=== PATIENT | male | born 1940 | race Caucasian/White ===

== ENCOUNTER → 2020-06-25 | Outpatient (CLI) | payer MEDICARE, OTHER ==
--- NOTE | 2020-06-25 12:28 | RAD ---
Study: Frontal and Lateral Radiographs of the Chest. Indication: COPD Comparison: None Impression: Mild cardiomegaly. Dorsal column stimulator device present. Emphysema suspected. Patchy consolidative changes bilateral lung bases, right greater than left. COVID-19 could give this appearance. No pleural effusion or pneumothorax. Degenerative changes of the spine noted. Electronically signed by: Leonard Holloway MD 06/25/2020 12:26 PM CDT
== END ==
LOC: RAD 06-23 11:19
PROVIDERS: ATTEND Internal Medicine Pulmonary Disease
DX: J44.9 Chronic obstructive pulmonary disease, unspecified (principal); R91.8 Other nonspecific abnormal finding of lung field; I51.7 Cardiomegaly; Z96.82 Presence of neurostimulator; M47.9 Spondylosis, unspecified

== ENCOUNTER 2020-09-06 10:30 | Observation (INO) | payer MEDICARE, OTHER ==
[2020-09-06] MEDS ORDERED: ASPIRIN TABLET 325 MG TAB PO ONE (11:11)
--- NOTE | 2020-09-06 11:13 | ED.PDOC ---
History of Present Illness - General Exam Limitations: no limitations Additional Information: Patient did take Rx Brilinta today - History of Present Illness Initial Comments: Adm [facility] in [place] week beore last to ICU for A-Fib and apparent pe ricardial effusion. S/P rotarblade angioplasty [address] 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 Had facial droop and siezure the same day, evaluated with brain imag w/o acut fndings. Timing/Duration: 4-6 hours Severity: severe Improving Factors: nothing Worsening Factors: other - Exertion Associated Symptoms: diaphoresis, shortness of breath <Danny Means - Last Filed: 09/06/20 18:47> <Glenn España - Last Filed: 09/06/20 20:11> - General Chief Complaint: Cardiovascular Problem Stated Complaint: Dizziness, SOB, Feels like heart is racing Time Seen by Provider: 09/06/20 11:09 - History of Present Illness Allergies/Adverse Reactions: Allergies NO KNOWN ALLERGY Allergy (Verified 09/06/20 12:11) Review of Systems - Review of Systems Constitutional: States: diaphoresis, weakness EENTM: States: no symptoms reported Respiratory: States: short of breath Cardiology: States: palpitations - Rapid, not irregular. Denies: chest pain Gastrointestinal/Abdominal: States: no symptoms reported Genitourinary: States: no symptoms reported Musculoskeletal: States: no symptoms reported Skin: States: no symptoms reported Neurological: States: weakness - General, no focal symptoms Endocrine: States: no symptoms reported <Danny Means - Last Filed: 09/06/20 18:47> Past Medical History (General) - Patient Medical History Hx Cardiac Disorders: Yes - Aib, CAD, pericardial effusion <Danny Means - Last Filed: 09/06/20 18:47> Family Medical History - Family History Mother Family History: Unknown Living Status: Unknown <Danny Means - Last Filed: 09/06/20 18:47> Physical Exam - Physical Exam General Appearance: Alert, Ill Appearing Eye Exam: bilateral normal Neck: non-tender - No JVD noted Respiratory: crackles - Both bases Cardiovascular/Chest: regular rate, rhythm Peripheral Pulses: femoral,right: 1+, femoral,left: 1+, popliteal,right: 2+, dorsalis pedis,right: 2+, dorsalis pedis,left: 0, posterior tibialis,right: 1+, posterior tibialis,left: 0 - + Doppler Gastrointestinal/Abdominal: normal bowel sounds, non tender, soft Back Exam: normal inspection 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 Comments: Both feet warm & pink Front/Back of Body, Lg (Color): 1 - Intense ecchymosis <Danny Means - Last Filed: 09/06/20 18:47> Progress - Progress Progress: 09/06/20 12:21 Called [facility] to request medical bed. Labs for COVID/Pneumonia drawn. echo pending, IV antibiotics ordered. 09/06/20 12:36 09/06/20 11:12 EKG Assessment ONCE 09/06/20 11:15 EKG STAT 09/06/20 11:29 C-REACTIVE PROTEIN Stat FERRITIN Stat LD-L/LDH Stat FIBRINOGEN Stat 09/06/20 11:47 Echocardiography complete w Stat 09/06/20 12:11 Oxygen Delivery Assessment: QSHIFT 09/06/20 12:14 BLOOD CULTURE Stat 09/06/20 12:29 ED Intent to Admit Routine 09/07/20 09:00 Oxygen Daily Laboratory Results - last 24 hr 09/06/20 11:29 WBC 14.5 H RBC 3.36 L Hgb 10.9 L Hct 32.7 L MCV 97.4 H MCH 32.3 H MCHC 33.2 RDW 14.9 H Plt Count 213 MPV 8.2 Absolute Neuts (auto) 12.20 H Absolute Lymphs (auto) 1.20 Absolute Monos (auto) 0.90 H Absolute Eos (auto) 0.20 Absolute Basos (auto) 0.10 Neutrophils % 84.0 H Lymphocytes % 8.1 L Monocytes % 5.9 Eosinophils % 1.5 Basophils % 0.5 PT 10.5 INR 1.06 PTT (SP) 26.8 Sodium 138 Potassium 4.0 Chloride 101 Carbon Dioxide 27 Anion Gap 14.0 BUN 14 Creatinine 1.01 BUN/Creatinine Ratio 13.9 Random Glucose 133 H Serum Osmolality 278.1 Calcium 8.4 Magnesium 1.8 Creatine Kinase 415 H* CK-MB (CK-2) 1.8 CK-MB (CK-2) % Not Reportable Troponin I 0.23 H* B-Natriuretic Peptide 362.0 H* Vital Signs - 24 hr 09/06/20 10:59 Temperature 97.3 F L Pulse Rate [ 80 Right Radial] Respiratory 20 Rate Blood Pressure 132/56 [Left Arm] O2 Sat by Pulse 96 Oximetry 09/06/20 12:54 CTA neg fro PE, + multiple infiltrates c/w pneumonia. D/W patient, is OK with outpatient disposition. To D/C on steroids and azithromycin, F/U PCP 09/06/20 12:56 PRIOR ENTRY WRITTEN IN ERROR, WRONG PATIENT. DISREGARD ENTRY ABOVE. 09/06/20 13:30 lab support tech reports no pericardial effusion seen. Report pending. 09/06/20 13:41 Discussed all findings with Dr. Ryan Crenshaw, hositalist on-call for [facility]: Accepted for admission intermediate ICU. Bed assignment pending discharges of patients from unit. 09/06/20 15:15 Repreat troponin 0.20. Awaiting bed assignment. Patient comfortable with stable VS. 09/06/20 16:59 Still awaiting bed assignment. Nightly meds written. Apixiban pm dose held due to Lovenox given. Pm dose Brilinta not written, unavailable this facility. Patient comfortable, stable,with good vital signs. 09/06/20 18:47 Still awaitng bed assignment. Care transferred to Dr. Glenn España. Plan: re- check third set of cardiac enzymes, is declining elev of Troponin likely due to procedure and not NSTEMI. Admit here for pneumonia. - EKG/XRAY/CT EKG: Sinus, nonspecific ST T wave Chg Comments: 75/min, No S-t elev or depression, NSR <Danny Means - Last Filed: 09/06/20 18:47> - Progress Progress: 09/06/20 20:08 The patient is being admitted to the hospital for a right middle lobe pneumonia that is likely hospital-acquired from his previous hospital stay. He has been started on vancomycin, Rocephin and azithromycin. He does not appear to be grossly fluid overloaded at this point. He does have a elevated BNP, however we do not have a previous to compare to. This will need to be followed. The patient does have a mildly elevated troponin likely due to the recent cardiac catheterization. Troponin has remained steady on 3 checks. No evidence of chest pain and no evidence of any acute pathology on EKG. Blood and sputum cul tures are being done. The patient does have significantly less dyspnea with oxygen in place even though his oxygen levels bottomed out at only around 89% on room air. The patient is a brittle COPD and CHF patient. He is currently in sinus rhythm. Delay in admission due to need to confirm that the patient is not having an acute non-ST elevation KS currently. Admit for continued care. 09/06/20 20:11 - Results/Orders Results/Orders: Third troponin shows no significant elevation, hovering around 0.2. Chest x-ray shows a right middle lobe pneumonia. <Glenn España - Last Filed: 09/06/20 20:11> Departure <Danny Means - Last Filed: 09/06/20 18:47> <Glenn España - Last Filed: 09/06/20 20:11> - Departure Clinical Impression: Hospital-acquired pneumonia Dyspnea Qualifiers: Dyspnea type: shortness of breath Qualified Code(s): R06.02 - Shortness of breath Disposition: Admit Patient Condition: Good Instructions: DI for Chest Pain Referrals: Luis ESPAÑA REF [Primary Care Provider] - 1-2 Weeks Decision To Admit - Decistion To Admit Decision to Admit Reason: Medical Nature - Pneumonia RLL, RMl. Elevated troponin, r/o NSTEMI Decision to Admit Date: 09/06/20 Decision to Admit Time: 12:18 <Danny Means - Last Filed: 09/06/20 18:47> - Decistion To Admit Decision to Admit Date: 09/06/20 Decision to Admit Time: 20:11 <Glenn España - Last Filed: 09/06/20 20:11>
--- NOTE | 2020-09-06 11:45 | RAD ---
EXAM DESCRIPTION: Chest,1 View CLINICAL HISTORY: 79 years Male, SOB, s/p recdnt stent placement COMPARISON: Previous study June 25, 2020 TECHNIQUE: AP portable chest. FINDINGS: Heart size is large with centrally prominent pulmonary vascularity. TENS unit electrode leads in the mid T-spine. Disc spacers in the lower C-spine. 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 Extensive infiltrate in the mid and lower right lung consistent with pneumonia. Question milder peripheral infiltrative changes in the left upper and midlung zones. Right hemidiaphragm is elevated. No pulmonary mass or worrisome nodule. No pneumothorax. Question small right pleural effusion. Bones are unremarkable. IMPRESSION: Right lung infiltrate consistent with pneumonia. Electronically signed by: Vic Casey MD 09/06/2020 11:43 AM MULE DEVELOPER
[2020-09-06] MEDS ORDERED: cefTRIAXone SODIUM 1 GM in SODIUM CHL 0.9% 50ML MIN-BAG+ 50 ML IVPB ONE (12:07)
[2020-09-06] MEDS ORDERED: DEXAMETHASONE INJ 10 MG/ML VIAL IV ONE (12:08)
[2020-09-06] MEDS ORDERED: REMDESIVIR 200 MG in SODIUM CHLORIDE 0.9% 250ML 250 ML IVPB ONE (12:08)
[2020-09-06] MEDS ORDERED: ENOXAPARIN SODIUM 80 MG/0.8 ML SYG SUBCU ONE (16:37)
[2020-09-06] MEDS ORDERED: ALBUTEROL INHALER 64 PUFF/8GM INH PRN (16:43)
[2020-09-06] MEDS ORDERED: HYDROcodone 10MG/APAP 325MG 1 EA TAB PO PRN (16:55)
[2020-09-06] MEDS ORDERED: FINASTERIDE 5 MG TAB PO SCH (18:00)
[2020-09-06] MEDS ORDERED: AMIODARONE HCL 200 MG TAB PO ONE (18:00)
[2020-09-06] MEDS ORDERED: VANCOMYCIN HCL INJ 1,000 MG, VANCOMYCIN HCL INJ 500 MG in SODIUM CHLORIDE 0.9% 250ML 25... IVPB ONE (19:52)
[2020-09-06] MEDS ORDERED: SODIUM CHLORIDE 0.9% (FLUSH) 10 ML SYG IV PRN (20:21)
[2020-09-06] MEDS ORDERED: VANCOMYCIN PER PHARMACY IVPB SCH (20:30)
[2020-09-06] MEDS: traZODone HCL 100 MG TAB PO SCH (20:36)
[2020-09-06] MEDS ORDERED: MELATONIN 3 MG TAB PO SCH (21:00)
[2020-09-06] MEDS ORDERED: NON-FORMULARY MEDICATION 1 EA MIS (Melatonin [Melatonin] 5 MG) PO SCH (21:00)
[2020-09-06] MEDS ORDERED: ATORVASTATIN 20 MG TAB PO SCH (21:00)
--- NOTE | 2020-09-06 21:09 | HP ---
SUPERVISING PHYSICIAN: Arden España MD CHIEF COMPLAINT: Shortness of breath and fatigue. HISTORY OF PRESENT ILLNESS: This is a 79-year-old male patient who came to the Emergency Room last night basically feeling pretty weak with a cough and shortness of breath. He was evaluated in the ER and was noted to have significant right sided pneumonia. Other labs that were done showed elevated white count of 14.5, hemoglobin 10.9, platelet count 213. Chemistries showed he had elevated troponin. There were 3 sets of troponins that all stayed in the range of about 0.20. They never really elevated. Initially, he was going to be transferred to [facility], however, given the fact that he did not have acute EKG changes, no significant chest pain and no subsequent increase in troponin, he remained here. Additionally, they did not have beds at that time. He was referred for admission for treatment of the pneumonia. He was COVID negative. I admitted the patient and placed him on antibiotics for healthcare associated pneumonia. Apparently he was admitted for about a week in [place] in the ICU there. I was told by his son and the patient it was for atrial fibrillation, however, I am not really sure what other complications he may have had that put him in the ICU. Additionally, he was transferred to [facility] where he ended up having a stent placed. I do not have records from that facility and he does not remember what vessel it was. He does have a sore on the right side of his mouth and I asked him where that was from. He said he had it after the procedure. His son verifies that he was on the ventilator for the procedure, but does not really know what happened that caused him to have to be on the ventilator. I have attempted to contact the patient's dermatology specialist without success as of yet. Once again, we have tried to get records from [facility] as well as [place] without success either. The patient did have a drop in his blood pressure overnight into the 60s which responded to a 500 cc bolus. He also had a blood pressure in the 80s after that bolus and was given an additional 500 cc bolus which he responded to as well with no problems. He had an echocardiogram which showed mild left ventricular hypertrophy and an ejection fraction of 65-70%. The patient complained of some mild hemoptysis this morning and, in fact, I did look at his sputum and he does have some blood in his sputum, but it is not bright red profuse blood, more of a dark blood-tinged sputum. At this point, I have stopped his Eliquis and stopped the digoxin as well due to the fact that his digoxin level is 2.2. PAST MEDICAL HISTORY: 1. Hypertension. 2. Hyperlipidemia. 3. Hypothyroidism. 4. Fatty liver disease. 5. Coronary artery disease. 6. Atrial fibrillation. PAST SURGICAL HISTORY: 1. Bilateral carotid endarterectomies. 2. Stimulator surgery for back surgeries. 3. Tonsillectomy. 4. Left wrist surgery. MEDICATIONS: Please see medication reconciliation list once verified in the computer. ALLERGIES: NO KNOWN DRUG ALLERGIES. FAMILY HISTORY: The son and the patient deny any significant family history. SOCIAL HISTORY: The patient smoked for 30 years, but quit 15 years ago. His son states that he drinks vodka daily, but he has not drank since his hospitalization and it has been a couple of weeks. No illicit drugs. REVIEW OF SYSTEMS: CONSTITUTIONAL: No fever or chills. Positive for weakness. HEENT: No headaches, vision changes, ear pain, nasal congestion or throat pain. RESPIRATORY: Positive for cough, hemoptysis and shortness of breath. No pleuritic chest pain. CARDIOVASCULAR: No chest pain, palpitations or peripheral edema. GASTROINTESTINAL: No nausea, vomiting, diarrhea, constipation or abdominal pain. GENITOURINARY: No dysuria, frequency or flank pain. ENDOCRINE: No polydipsia, polyuria or polyphagia. No heat or cold intolerance. MUSCULOSKELETAL: No joint pain, joint swelling or muscle cramps. NEUROLOGIC: No syncope, paresthesias or seizures. HEMATOLOGIC: Positive for easy bruising, but no transfusion reaction. PHYSICAL EXAMINATION: VITAL SIGNS: Blood pressure 102/52, heart rate 63, respiratory rate 16, temperature 97.6, oxygen saturation 96% on 2 liters via nasal cannula. GENERAL: Mr. Saravia is a 79-year-old male patient who is ill in appearance, but in no active distress. NEUROLOGIC: The patient is alert. LUNGS: Crackles bilaterally. CARDIOVASCULAR: Irregular rate and rhythm. Normal S1, S2. ABDOMEN: Soft. Positive bowel sounds. EXTREMITIES: Lower extremities with no edema. Pulses 2+. Capillary refill is less than 2 seconds. LABORATORY: Labs and films are as discussed in history of present illness. IMPRESSION: 1. Right sided pneumonia which appears to be healthcare associated. 2. Coronary artery disease with recent stent. 3. Hemoptysis. 4. Atrial fibrillation. 5. Hypertension with current marginal blood pressure. 6. Hypothyroidism. 7. Anemia, not in transfusion range. PLAN: The patient will be admitted for healthcare associated pneumonia. I stopped the Eliquis due to the hemoptysis and have tried to touch base with the dermatology specialist and hope to do so. His dermatology specialist is Dr. Lowell Masters at [facility], phone number [phone]. I am also stopping the digoxin due to the elevated dig level. We will continue the Brilinta given the recent stents. I will reduce his amiodarone to 200 mg b.i.d. until I can speak with the dermatology specialist. I will start him on a low dose of Lasix 20 mg IV b.i.d. We will still attempt to get records from outlying facilities to piece together exactly what happened with the patient. We will recheck labs and chest x-ray tomorrow. #[id number] [facility]
[2020-09-06] MEDS ORDERED: SODIUM CHL 0.9% 100ML MINI-BAG 100 ML IVPB ONE (22:38)
[2020-09-06] MEDS ORDERED: PIPERACILLIN/TAZOBACTAM 3.375 GM VIAL IVPB ONE (22:38)
[2020-09-06] MEDS: IV SET AND CAP CHANGE INJ INJ SCH (22:44)
[2020-09-06] MEDS: AMIODARONE HCL 200 MG TAB PO SCH (22:44)
[2020-09-06] MEDS: HYDROcodone 10MG/APAP 325MG 1 EA TAB PO SCH (22:45)
[2020-09-06] MEDS: APIXABAN 5 MG TAB PO SCH (22:45)
[2020-09-06] MEDS: PIPERACILLIN/TAZOBACTAM 3.375 GM in SODIUM CHLORIDE 0.9% 100ML 100 ML IVPB SCH (22:47)
[2020-09-06] MEDS: TICAGRELOR 90 MG PO SCH (22:47)
[2020-09-07] MEDS ORDERED: SODIUM CHLORIDE 0.9% 500ML 500 ML IVS ONE ×2 (00:23→03:23)
[2020-09-07] MEDS ORDERED: PIPERACILLIN/TAZOBACTAM 3.375 GM VIAL IVPB ONE (03:39)
[2020-09-07] MEDS ORDERED: SODIUM CHL 0.9% 100ML MINI-BAG 100 ML IVPB ONE (03:39)
[2020-09-07] MEDS: HYDROcodone 10MG/APAP 325MG 1 EA TAB PO SCH ×3 (04:06→16:44)
[2020-09-07] MEDS: PIPERACILLIN/TAZOBACTAM 3.375 GM in SODIUM CHLORIDE 0.9% 100ML 100 ML IVPB SCH ×3 (05:52→22:03)
[2020-09-07] MEDS: LEVOTHYROXINE SODIUM 0.1 MG TAB PO SCH (06:02)
[2020-09-07] MEDS ORDERED: PANTOPRAZOLE SODIUM TAB 40 MG PO SCH ×2 (06:30→09:00)
--- NOTE | 2020-09-07 07:15 | RAD ---
PROCEDURE:XR CHEST 1 VIEW HISTORY:Pneumonia COMPARISON: September 06, 2020 FINDINGS: The heart is stable in appearance.. The infiltrate seen within the right lung is slightly more pronounced than on the prior exam. The remainder of the lung parenchyma appears unremarkable with no effusion or pneumothorax There are no acute bony or soft tissue abnormalities. IMPRESSION: Slight worsening of the right pulmonary infiltrate Electronically signed by: Sonny Diallo MD 09/07/2020 7:13 AM WHITE [employer]GAR SYRUP OPERATOR
[2020-09-07] MEDS: IPRATROPIUM/ALBUTEROL 3 ML VIAL INH SCH ×4 (08:15→21:35)
[2020-09-07] MEDS ORDERED: DIGOXIN 0.125 MG TAB PO SCH (09:00)
[2020-09-07] MEDS: FINASTERIDE 5 MG TAB PO SCH (09:30)
[2020-09-07] MEDS: AMIODARONE HCL 200 MG TAB PO SCH ×2 (09:30→20:11)
[2020-09-07] MEDS: ASPIRIN (ENTERIC COATED) 81 MG TAB PO SCH (09:30)
[2020-09-07] MEDS: APIXABAN 5 MG TAB PO SCH (09:31)
[2020-09-07] MEDS: TICAGRELOR 90 MG PO SCH ×2 (09:31→20:10)
[2020-09-07] MEDS: METOPROLOL SUCCINATE XL 25 MG TAB PO SCH (09:31)
[2020-09-07] MEDS: FOLIC ACID 1 MG TAB PO SCH (09:31)
[2020-09-07] MEDS ORDERED: guaiFENesin ER TAB 600 MG TAB ONE ×2 (10:08→19:14)
[2020-09-07] MEDS: VANCOMYCIN HCL INJ 1,000 MG in SODIUM CHLORIDE 0.9% 250ML 250 ML IVPB SCH ×2 (10:10→20:03)
[2020-09-07] MEDS: BIFIDOBACTERIUM INFANTIS 4 MG CAP PO SCH (10:10)
[2020-09-07] MEDS: NON-FORMULARY MEDICATION 1 EA MIS (Tiotropium Bromide-Olodaterol [Stiolto Respimat 2.5-2.5 INH SCH (13:56)
[2020-09-07] MEDS: FUROSEMIDE INJ 20 MG/2 ML VIAL IV SCH (16:44)
[2020-09-07] MEDS ORDERED: AMIODARONE HCL 200 MG TAB ONE (19:14)
[2020-09-07] MEDS ORDERED: ATORVASTATIN 20 MG TAB PO ONE (19:14)
[2020-09-07] MEDS ORDERED: MELATONIN 3 MG TAB ONE (19:14)
[2020-09-07] MEDS: MELATONIN 3 MG TAB PO SCH (20:08)
[2020-09-07] MEDS: guaiFENesin ER TAB 600 MG TAB PO SCH (20:08)
[2020-09-07] MEDS: ATORVASTATIN 20 MG TAB PO SCH (20:09)
[2020-09-07] MEDS: traZODone HCL 100 MG TAB PO SCH (20:11)
[2020-09-08] MEDS ORDERED: PANTOPRAZOLE SODIUM TAB 40 MG PO ONE (03:17)
[2020-09-08] MEDS: PIPERACILLIN/TAZOBACTAM 3.375 GM in SODIUM CHLORIDE 0.9% 100ML 100 ML IVPB SCH ×3 (05:44→22:09)
[2020-09-08] MEDS: PANTOPRAZOLE SODIUM TAB 40 MG PO SCH (06:01)
[2020-09-08] MEDS: LEVOTHYROXINE SODIUM 0.1 MG TAB PO SCH (06:01)
--- NOTE | 2020-09-08 07:14 | RAD ---
EXAM DESCRIPTION: XR Chest, one view CLINICAL HISTORY: pneumonia follow up. COMPARISON: 09/07/2020 FINDINGS: The heart is normal in size. The pulmonary vascularity is normal. Mild hyperinflation is noted. Superimposed increased interstitial markings and opacities noted in the right midlung and lower lung field. Mild eventration of the right hemidiaphragm is again noted. No pneumothorax or pleural effusion is seen. The osseous structures appear unremarkable. Presence of spinal cord stimulator is noted. Evidence of prior cervical spine surgery is seen. IMPRESSION: Stable appearance. Electronically signed by: Aixa Raymond MD 09/08/2020 7:12 AM POCKET BUILDER
[2020-09-08] MEDS ORDERED: MAGNESIUM SULFATE PREMIX 2GM 2 GM in PREMIX BAG 1 BAG IVPB ONE (08:31)
[2020-09-08] MEDS: NON-FORMULARY MEDICATION 1 EA MIS (Tiotropium Bromide-Olodaterol [Stiolto Respimat 2.5-2.5 INH SCH (08:37)
[2020-09-08] MEDS: IPRATROPIUM/ALBUTEROL 3 ML VIAL INH SCH ×4 (08:37→20:18)
[2020-09-08] MEDS: guaiFENesin ER TAB 600 MG TAB PO SCH ×2 (09:57→20:54)
[2020-09-08] MEDS: BIFIDOBACTERIUM INFANTIS 4 MG CAP PO SCH (09:57)
[2020-09-08] MEDS: METOPROLOL SUCCINATE XL 25 MG TAB PO SCH (09:57)
[2020-09-08] MEDS: AMIODARONE HCL 200 MG TAB PO SCH ×2 (09:57→20:55)
[2020-09-08] MEDS: FUROSEMIDE INJ 20 MG/2 ML VIAL IV SCH ×2 (09:57→17:46)
[2020-09-08] MEDS: FOLIC ACID 1 MG TAB PO SCH (09:57)
[2020-09-08] MEDS: ASPIRIN (ENTERIC COATED) 81 MG TAB PO SCH (09:58)
[2020-09-08] MEDS: TICAGRELOR 90 MG PO SCH ×2 (09:58→20:56)
[2020-09-08] MEDS: FINASTERIDE 5 MG TAB PO SCH (09:58)
[2020-09-08] MEDS: VANCOMYCIN HCL INJ 1,000 MG in SODIUM CHLORIDE 0.9% 250ML 250 ML IVPB SCH ×3 (09:59→23:17)
--- NOTE | 2020-09-08 20:20 | PN ---
SUPERVISING PHYSICIAN: Arden España M.D. DATE: 09/08/20 SUBJECTIVE: The patient is sitting up in his chair in his room. He has no complaints of chest pain, shortness of breath, nausea or vomiting. Physical Therapy did clear him to be discharged home safely. OBJECTIVE: VITAL SIGNS: Temperature 98.3, heart rate 76, blood pressure 106/70, respiratory rate 18, O2 saturation 94% on 2 liters nasal cannula. RESPIRATORY: Essentially clear to auscultation bilaterally. There are a few scattered rhonchi in the upper airways. CARDIAC: Regular rate and rhythm. NEUROLOGIC: He is awake, alert and oriented times three. LABORATORY: WBCs are 9,700 with hemoglobin 9.6, hematocrit 29.9. Electrolytes are basically within normal limits with the exception of his magnesium is low at 1.7, calcium 7.8. Digoxin 0.7. Preliminary blood cultures show no growth after 48 hours. Chest x-ray shows stable appearance. All other labs and films have been reviewed via the EMR. ASSESSMENT: 1. Right sided pneumonia which appears to be healthcare associated. 2. Coronary artery disease with recent stent. 3. Hemoptysis. 4. Atrial fibrillation. 5. Hypertension with current marginal blood pressure. 6. Hypothyroidism. 7. Anemia, not in transfusion range. PLAN: We will continue present supportive care. He will remain on the pneumonia guidelines. Will watch his heart rate as his digoxin dropped significantly. I have ordered lab for in the morning. He will have aggressive pulmonary hygiene. Will monitor and treat as needed. #[id number] [facility]
[2020-09-08] MEDS: traZODone HCL 100 MG TAB PO SCH (20:53)
[2020-09-08] MEDS: ATORVASTATIN 20 MG TAB PO SCH (20:53)
[2020-09-08] MEDS: MELATONIN 3 MG TAB PO SCH (20:54)
[2020-09-09] MEDS ORDERED: SODIUM CHLORIDE 0.9% 250ML 250 ML IVS ONE (00:08)
[2020-09-09] MEDS ORDERED: SODIUM CHLORIDE 0.9% 500ML 500 ML IVS ONE (00:44)
[2020-09-09] MEDS: PIPERACILLIN/TAZOBACTAM 3.375 GM in SODIUM CHLORIDE 0.9% 100ML 100 ML IVPB SCH ×3 (05:47→22:02)
[2020-09-09] MEDS: PANTOPRAZOLE SODIUM TAB 40 MG PO SCH (05:48)
[2020-09-09] MEDS: LEVOTHYROXINE SODIUM 0.1 MG TAB PO SCH (06:01)
[2020-09-09] MEDS: NON-FORMULARY MEDICATION 1 EA MIS (Tiotropium Bromide-Olodaterol [Stiolto Respimat 2.5-2.5 INH SCH (08:37)
[2020-09-09] MEDS: IPRATROPIUM/ALBUTEROL 3 ML VIAL INH SCH ×4 (08:37→20:26)
[2020-09-09] MEDS: BIFIDOBACTERIUM INFANTIS 4 MG CAP PO SCH (08:57)
[2020-09-09] MEDS: FOLIC ACID 1 MG TAB PO SCH (08:58)
[2020-09-09] MEDS: FINASTERIDE 5 MG TAB PO SCH (08:58)
[2020-09-09] MEDS: guaiFENesin ER TAB 600 MG TAB PO SCH ×2 (08:58→20:11)
[2020-09-09] MEDS: FUROSEMIDE INJ 20 MG/2 ML VIAL IV SCH ×2 (08:58→17:28)
[2020-09-09] MEDS: AMIODARONE HCL 200 MG TAB PO SCH ×2 (08:58→20:09)
[2020-09-09] MEDS: ASPIRIN (ENTERIC COATED) 81 MG TAB PO SCH (08:58)
[2020-09-09] MEDS: TICAGRELOR 90 MG PO SCH ×2 (08:59→20:11)
[2020-09-09] MEDS: METOPROLOL SUCCINATE XL 25 MG TAB PO SCH (09:00)
[2020-09-09] MEDS ORDERED: KCL 20MEQ/0.45% NS 1,000 ML IVS ONE ×2 (09:51→10:06)
[2020-09-09] MEDS: VANCOMYCIN HCL INJ 1,000 MG in SODIUM CHLORIDE 0.9% 250ML 250 ML IVPB SCH ×2 (10:55→22:45)
--- NOTE | 2020-09-09 13:33 | PN ---
SUPERVISING PHYSICIAN: Arden España M.D. DATE: 09/09/20 SUBJECTIVE: The patient is sitting up in bed. He has no complaints of chest pain, nausea or vomiting. Overnight, it was reported that his blood pressure was somewhat low. He did receive a 250 cc bolus of fluids. I did call his industrial education teacher in [place] to update him on the patient's clinical presentation. I also called his son to update him on what the industrial education teacher reported. OBJECTIVE: VITAL SIGNS: Temperature 97.4, heart rate 88, blood pressure was as low at 62/46 and was up to 90/60, respiratory rate 20, O2 saturation 92%. RESPIRATORY: Essentially clear to auscultation bilaterally. CARDIAC: Regular rate and rhythm. NEUROLOGIC: He is awake, alert and oriented times three. LABORATORY: CBC is unremarkable. Sodium 140, potassium 3.5, chloride 101, calcium 8.3, magnesium 2. Total bilirubin 1.2, liver enzymes within normal limits. Troponin 0.05. MICROBIOLOGY: Preliminary blood cultures show no growth after 3 days. Sputum culture is pending. All other labs and films have been reviewed via the EMR. ASSESSMENT: 1. Right sided pneumonia which appears to be healthcare associated. 2. Coronary artery disease with recent stent. 3. Hemoptysis. 4. Atrial fibrillation. 5. Hypertension with current marginal blood pressure. 6. Hypothyroidism. 7. Anemia, not in transfusion range. PLAN: We will continue present supportive care including his present antibiotics. I spoke with the patient's industrial education teacher, Dr. Masters, and he was not concerned with his blood pressure readings as he said he does have fairly extensive stenosis and blockage in his veins. As long as the patient was awake and alert, he was okay with borderline lower blood pressures and to try another extremity to verify his blood pressure. He also verified that the amiodarone should be 200 mg b.i.d. and he recommended that the Eliquis be decreased to 2.5 mg b.i.d. All other medications are to continue as previously ordered. He also wants to see the patient next week in office. I have ordered labs for in the morning. We will continue with good pulmonary hygiene. I will also report this information to his primary care physician, Dr. España. #[id number] [facility]
[2020-09-09] MEDS ORDERED: APIXABAN 5 MG TAB PO ONE (19:16)
[2020-09-09] MEDS: traZODone HCL 100 MG TAB PO SCH (20:09)
[2020-09-09] MEDS: APIXABAN 5 MG TAB PO SCH (20:10)
[2020-09-09] MEDS: ATORVASTATIN 20 MG TAB PO SCH (20:11)
[2020-09-09] MEDS: MELATONIN 3 MG TAB PO SCH (20:11)
[2020-09-10] MEDS: IV SET AND CAP CHANGE INJ INJ SCH (03:31)
[2020-09-10] MEDS: PIPERACILLIN/TAZOBACTAM 3.375 GM in SODIUM CHLORIDE 0.9% 100ML 100 ML IVPB SCH (05:36)
[2020-09-10] MEDS: PANTOPRAZOLE SODIUM TAB 40 MG PO SCH (06:07)
[2020-09-10] MEDS: LEVOTHYROXINE SODIUM 0.1 MG TAB PO SCH (06:35)
[2020-09-10] MEDS: IPRATROPIUM/ALBUTEROL 3 ML VIAL INH SCH ×2 (07:25→13:00)
[2020-09-10] MEDS: NON-FORMULARY MEDICATION 1 EA MIS (Tiotropium Bromide-Olodaterol [Stiolto Respimat 2.5-2.5 INH SCH (07:25)
[2020-09-10] MEDS ORDERED: POTASSIUM CHLORIDE 20 MEQ TAB PO ONE (08:31)
[2020-09-10] MEDS ORDERED: POTASSIUM CHLORIDE 20 MEQ TAB ONE (09:00)
[2020-09-10] MEDS: ASPIRIN (ENTERIC COATED) 81 MG TAB PO SCH (09:01)
[2020-09-10] MEDS: AMIODARONE HCL 200 MG TAB PO SCH (09:01)
[2020-09-10] MEDS: FOLIC ACID 1 MG TAB PO SCH (09:01)
[2020-09-10] MEDS: APIXABAN 5 MG TAB PO SCH (09:01)
[2020-09-10] MEDS: METOPROLOL SUCCINATE XL 25 MG TAB PO SCH (09:01)
[2020-09-10] MEDS: guaiFENesin ER TAB 600 MG TAB PO SCH (09:01)
[2020-09-10] MEDS: BIFIDOBACTERIUM INFANTIS 4 MG CAP PO SCH (09:02)
[2020-09-10] MEDS: FUROSEMIDE INJ 20 MG/2 ML VIAL IV SCH (09:02)
[2020-09-10] MEDS: FINASTERIDE 5 MG TAB PO SCH (09:02)
[2020-09-10] MEDS: TICAGRELOR 90 MG PO SCH (09:15)
[2020-09-10] MEDS ORDERED: INFLUENZA VIRUS VACC (ADULT) 0.5 ML SYG IM ONE ×2 (11:56→12:15)
[2020-09-10] MEDS ORDERED: DIGOXIN 0.125 MG TAB PO SCH (12:00)
[2020-09-10] MEDS ORDERED: VANCOMYCIN HCL INJ 750 MG in SODIUM CHLORIDE 0.9% 250ML 250 ML IVPB SCH (12:00)
[2020-09-10 12:01] VITALS: BP 109/73; TEMP 97.6
--- NOTE | 2020-09-10 14:28 | DS ---
SUPERVISING PHYSICIAN: Arden España MD DISCHARGE DIAGNOSIS: 1. Right sided pneumonia which appears to be healthcare associated. 2. Coronary artery disease with recent stent placement. 3. Hemoptysis. 4. Atrial fibrillation on a beta roverto, digoxin and amiodarone. 5. Hypertension with current marginal blood pressure. 6. Hypothyroidism. 7. Anemia. HISTORY OF PRESENT ILLNESS: This is a 79-year-old male patient who recently moved to [place]. He came to the Emergency Room feeling fairly weak with a cough and shortness of breath. He was noted to have significant right sided pneumonia in the ER. His white count was 14,500, hemoglobin 10.8. Troponins were in the range of 0.2. They never elevated. Initially, he was going to be transferred to [facility], but since he did not have acute EKG changes, no significant chest pain and no subsequent increase in troponin. He also had a stent placement within the last several weeks. There were beds at the other facilities, so he was placed in the hospital for healthcare associated pneumonia. He had been in the ICU in [place] about a week prior. At that time, it was for atrial fibrillation, but there was no other information available other than he was transferred from [place] to [facility] for a stent. Those records are on the chart. HOSPITALS COURSE: He was placed on Zosyn and vancomycin. His Eliquis was stopped due to complaints of hemoptysis. His amiodarone initially was at 400 mg b.i.d. That was reduced to 200 mg b.i.d. until verified with his unit supervisor. He also had Lasix and aggressive pulmonary hygiene. Over the next several days, he progressively improved although he did have a rather low blood pressure. Oftentimes, his systolic blood pressure was in the 70s and 80s. His son did clarify that due to his extensive stenosis and plaque build up, they were told he would always have a low blood pressure. His digoxin was held initially when the level was elevated and was restarted once his digoxin levels normalized. Dr. Masters, his unit supervisor, was contacted and he clarified that the patient did have low blood pressures as well as that the patient should be on amiodarone 200 mg b.i.d. His other cardiac medications were verified with Dr. Masters and he also agreed with the reduction in Eliquis to 2.5 mg b.i.d. His only request was that he would like to see him the week after discharge from this facility. Today, the patient has remained stable. He has had no chest pain and he will be discharged home today in stable condition. His amiodarone has been ordered as recommended by Dr. Masters and he has had a reduction in his Eliquis. LABORATORY: WBCs started at 14,500 and are now 9,000. Hemoglobin and hematocrit stable at 10.7 and 32.4. Electrolytes have been basically within normal limits. He did require some magnesium supplementation at one time. It is up to 2 now. Initially, his troponins were 0.2 and 0.21 and his troponin is now 0.05. MICROBIOLOGY: Preliminary blood cultures showed no growth after 4 days. Sputum culture pending. RADIOLOGY: His final chest x-ray shows stable appearance of the chest. His echocardiogram showed 1) There is mild concentric left ventricular hypertrophy. 2) Left ventricular ejection fraction estimated by 2D at 65-70%. 3) Mild left atrial enlargement. 4) Trace mitral valve regurgitation. DISCHARGE PLAN: The patient will be discharged home in stable condition. He is to resume his previous diet and increase his activity as tolerated. He has a followup with Dr. España, his primary care physician, on 09/16/20 at 9:30 AM. Changes to his routine medications include amiodarone 200 mg b.i.d. and Eliquis 2.5 mg b.i.d. In addition to his other home medications, he will be on 7 days of amoxicillin and 7 days of doxycycline. He is also to followup with his unit supervisor next week. I have called his son, Tunde Saravia, and informed him of that and he is to make an appointment with him. He is to return to the hospital or followup with Dr. España for any problems or complications. DISCHARGE MEDICATIONS: 1. Finasteride. 2. Diltiazem. 3. Levothyroxine. 4. Hydrocodone. 5. Brilinta. 6. Pantoprazole. 7. Eliquis. 8. Metoprolol. 9. Folic acid. 10. Digoxin. 11. Atorvastatin. 12. Aspirin. 13. Albuterol. 14. Stiolto. 15. Melatonin. 16. Align. 17. Augmentin. 18. Guaifenesin. 19. Doxycycline. #[id number] [facility]
[2020-09-10 14:52] VITALS: O2SAT 99
== END 2020-09-10 14:18 | disposition home health service (06) ==
LOC: ER 10:30 → MS 10:31 → UNDOADMOB 21:08 → MS 21:08 → UNDODISOB 09-10 14:18
PROVIDERS: ADMIT Nurse Practitioner; ATTEND Nurse Practitioner Acute Care
DX: J18.9 Pneumonia, unspecified organism (principal); Y95 Nosocomial condition; I25.10 Atherosclerotic heart disease of native coronary artery without angina pectoris; R04.2 Hemoptysis; I48.91 Unspecified atrial fibrillation; I11.9 Hypertensive heart disease without heart failure; E03.9 Hypothyroidism, unspecified; D64.9 Anemia, unspecified; I95.9 Hypotension, unspecified; I08.1 Rheumatic disorders of both mitral and tricuspid valves; E78.5 Hyperlipidemia, unspecified; K76.0 Fatty (change of) liver, not elsewhere classified; Z20.822 Contact with and (suspected) exposure to COVID-19; Z23 Encounter for immunization; Z79.01 Long term (current) use of anticoagulants; Z79.02 Long term (current) use of antithrombotics/antiplatelets; Z79.82 Long term (current) use of aspirin; Z79.899 Other long term (current) drug therapy; Z95.5 Presence of coronary angioplasty implant and graft; Z87.891 Personal history of nicotine dependence
CPT/HCPCS: 96366 ×5; 96367 ×3; 96365; 96375; 96376 ×3; 96372; J0696; J1940 ×6; 90674; J2543 ×11; J7040 ×3; J7050 ×22; J3370 ×10; J7620 ×14; J1650; J3475; J3480; 80048 ×3; 82553 ×3; 80053; 36415 ×12; 82550 ×3; 85025 ×4; 85730; 85610; 84484 ×4; 85384; 86140; 87040 ×2; G0008; 80162 ×2; 82728; 83615; 83735 ×2; 80202 ×2; 83880; 83605; 71045 ×3; 94640 ×17; 94664; 94762 ×4; 97116 ×3; 97110 ×3; 97162; 99285; 93306; 93005; G0378; 87635

== ENCOUNTER → 2020-09-16 | Outpatient (CLI) | payer MEDICARE, OTHER | LOC: GMAM 13:41 | PROVIDERS: ATTEND Family Medicine | DX: I48.91 Unspecified atrial fibrillation (principal); E53.8 Deficiency of other specified B group vitamins; E55.9 Vitamin D deficiency, unspecified; R74.8 Abnormal levels of other serum enzymes; I10 Essential (primary) hypertension; E03.9 Hypothyroidism, unspecified; R06.02 Shortness of breath; D64.9 Anemia, unspecified ==